=== PATIENT | male | born 1955 | race Caucasian/White ===

== ENCOUNTER 2021-11-03 14:17 | Emergency (ER) | payer BC, SELFPAY ==
--- NOTE | ~2021-11-03 | XR_ITS ---
EXAMINATION: XR CHEST CLINICAL INFORMATION: Chest pain. Covid positive. COMPARISON: 01/24/2020 TECHNIQUE: 2 views of the chest were obtained. FINDINGS: The lungs are well expanded. Right basilar linear markings favor atelectasis. No dense consolidation. No edema or effusion. No pneumothorax. The cardiomediastinal silhouette is within normal limits. XR/XR chest 2V IMPRESSION: Linear right basilar markings favor atelectasis. Otherwise no acute pulmonary finding.
[2021-11-03 14:30] VITALS: BP 143/68; PULSE 83; RESP 19; TEMP 37.2; O2SAT 95; BMI 27.5
--- NOTE | 2021-11-03 16:22 | ED_ITS ---
HPI - URI/Sore Throat General Chief Complaint: Upper Respiratory Symptoms Stated Complaint: covid + heavy chest Time Seen by Provider: 11/03/21 16:06 History of Present Illness HPI Narrative: Patient is a 66-year-old male presented with coughing upper respiratory symptoms ongoing since Saturday. Tested positive for COVID on Saturday. Patient is already on Plaxlovid. Complaining of congestion upper respiratory symptoms still persisting. Patient has a history diabetes. No history of lung problems. No history of congestive heart failure. No history of asthma no history of lung cancer no history of COPD. Not a smoker. Patient is immunized with Moderna vaccine x3. Related Data Allergies Allergy/AdvReac Type Severity Reaction Status Date / Time No Known Allergies Allergy Unverified 03/24/20 18:35 [No Known Allergies*] Review of Systems Review of Systems: Positive coughing upper respiratory symptoms positive gener alized malaise Yes all other systems are reviewed and are negative PMFSH Past Medical History Attestation statement: The following information was validated with the patient. Medical History Diabetes type 2, controlled High cholesterol Social History Social History Advance Directives: No Advance Directives Information Provided: No Physical Exam Vital Signs: Vital Signs: Last Vital Signs Temp 98.9 F 11/03/21 14:30 Pulse 83 11/03/21 14:30 Resp 19 11/03/21 14:30 BP 143/68 H 11/03/21 14:30 Pulse Ox 95 11/03/21 14:30 BMI result Body Mass Index 27.5 Appearance: Alert. Oriented X3. No acute distress. Eyes: Pupils equal, round and reactive to light. ENT: Pharynx normal. Neck: Normal inspection. Neck supple. No lymph nodes noted. No crepitus CVS: Normal heart rate and rhythm. Pulses normal. Normal S1 and S2 Respiratory: No respiratory distress. Breath sounds normal. No Wheezing. No rales Abdomen: Soft and nontender. No rigidity. No distention. good BS x4 Skin: Skin warm and dry. Normal skin color. Normal skin turgor. Extremities: No lower extremity edema. Neurovascular intact to all extremities. No Lacerations. No Rash Neuro: Oriented X 3. No motor deficit. No sensory deficit. Moving all e xtermities. No slurred speech MDM - URI/Sore Throat MDM Narrative Medical decision making narrative: Chest x-ray did not show any focal infiltrates. Patient's O2 sat maintained at 95% on room air. Ambulated patient O2 sat maintained greater than 93%. Will discharge patient home. Home isolation continue current medication in stable condition. Differential Diagnosis Differential diagnosis: Likely upper respiratory infection Medical Records Attestation: I reviewed the patient's medical records. Discharge Plan Discharge Clinical Impression: COVID-19 Patient Disposition: Home, Self-Care Instructions: COVID-19 (Coronavirus Disease 2019) (ED) Referrals: Jcarlos Gomez MD [Primary Care Provider] -
[2021-11-03 16:26] VITALS: BP 142/73; PULSE 76; RESP 16; O2SAT 95
--- NOTE | 2021-11-03 16:26 | PC.NURSE ---
This RN and RAMIREZ to bedside for eval, ambulatory around room back and forth and able to maintain 02 sat 93%, no SOB noted. Already rx antivirals by PCP, plan for d/c
== END 2021-11-03 16:31 | disposition home or self-care (01) ==
PROVIDERS: Emergency Provider Emergency Medicine Emergency Medical Services; PCP Internal Medicine
DX: U07.1 COVID-19 (principal); R05.9 Cough, unspecified
CPT/HCPCS: 71046; 99283